=== PATIENT | male | born 1955 | race Caucasian/White ===

== ENCOUNTER 2017-11-08 09:01 | Emergency (ER) | payer OTHER ==
[2013-08-02 14:05] VITALS: BMI 32.1
[~2017-11-08 09:01] MED LIST: GAVISCON LIQUI355 ML PO; IMDUR30 MG PO; MIRALAX17 GM PO; NORCO 5/325 TAB1 TA1 PO
== END 2017-11-08 10:00 | disposition home or self-care (01) ==
LOC: D.ER 09:01
DX: J20.9 Acute bronchitis, unspecified (principal); I10 Essential (primary) hypertension

== ENCOUNTER 2017-12-21 13:28 | Emergency (ER) | payer OTHER ==
[2013-08-02 14:05] VITALS: BMI 32.1
[2017-12-21 13:53] LABS: EOSINOPHILS 4.6 % (0-7); HEMATOCRIT 41.1 % (42.0-54.0); HEMOGLOBIN 13.8 g/dL (13.5-17.5); IMMATURE GRANULOCYTES 0.5 % (0-5); LYMPHOCYTES 27.1 % (15-50); MCH 31.2 pg (26.0-34.0); MCHC 33.6 g/dL (31.0-37.0); MEAN PLATELET VOLUME 10.8 fL (7.4-10.4); MONOCYTES 10.3 % (2-11); NEUTROPHILS 56.5 % (40-80); PLATELET COUNT 332 10x3/uL (130-400); RBC 4.42 10x6/uL (4.20-6.10); RDW 12.7 % (11.5-14.5); WBC 9.4 10x3/uL (4.8-10.8)
[2017-12-21 14:08] LABS: ALBUMIN 3.9 g/dL (3.4-5.0); ALKALINE PHOSPHATASE 104 U/L (46-116); ALT (SGPT) 16 U/L (10-68); BILIRUBIN - TOTAL 0.34 mg/dL (0.2-1.3); CALC OSMOLALITY 284 mosm/kg (275-300); CALCIUM 8.9 mg/dL (8.5-10.1); CARBON DIOXIDE 25.4 mmol/L (21.0-32.0); CHLORIDE - SERUM 105 mmol/L (98-107); CREATININE - SERUM 1.1 mg/dL (0.6-1.3); GLUCOSE 110 mg/dL (74-106); POTASSIUM - SERUM 3.8 mmol/L (3.5-5.1); PROTEIN - SERUM 7.9 g/dL (6.4-8.2); SODIUM 142 mmol/L (136-145); UREA NITROGEN 14 mg/dL (7-18); eGFR NON AFRICAN AMERICAN 72 mL/min (90-120)
[2017-12-21 14:19] LABS: CHOL - HDL RATIO 3.1 ratio (2.3-4.9); CHOLESTEROL, TOTAL 182 mg/dL (0-200); CKMB 1.2 U/L (0.0-3.6); CREATINE KINASE 74 UL (21-232); HDL CHOLESTEROL 59 mg/dL (32-96); LDL CHOLESTEROL 90 mg/dL (0-100); LDL-HDL RATIO 1.5 ratio (1.5-3.5); TRIGLYCERIDE 168 mg/dL (30-200)
[2017-12-21 14:24] LABS: TROPONIN-I < 0.017 ng/mL (0.000-0.060)
== END 2017-12-21 18:11 | disposition other institution (70) ==
LOC: D.ER 13:28
PROVIDERS: Family Medicine
DX: R07.9 Chest pain, unspecified (principal); I10 Essential (primary) hypertension; Z95.0 Presence of cardiac pacemaker; I49.3 Ventricular premature depolarization; I45.10 Unspecified right bundle-branch block

== ENCOUNTER 2017-12-25 15:49 | Emergency (ER) | payer OTHER ==
[2013-08-02 14:05] VITALS: BMI 32.1
[2017-12-25 16:52] LABS: ALBUMIN 3.7 g/dL (3.4-5.0); ALKALINE PHOSPHATASE 83 U/L (46-116); ALT (SGPT) 14 U/L (10-68); BILIRUBIN - TOTAL 0.36 mg/dL (0.2-1.3); CALC OSMOLALITY 280 mosm/kg (275-300); CALCIUM 8.7 mg/dL (8.5-10.1); CARBON DIOXIDE 25.5 mmol/L (21.0-32.0); CHLORIDE - SERUM 105 mmol/L (98-107); CREATININE - SERUM 0.9 mg/dL (0.6-1.3); GLUCOSE 100 mg/dL (74-106); PROTEIN - SERUM 7.2 g/dL (6.4-8.2); SODIUM 141 mmol/L (136-145); UREA NITROGEN 13 mg/dL (7-18); eGFR NON AFRICAN AMERICAN > 90 mL/min (90-120)
== END 2017-12-25 17:42 | disposition home or self-care (01) ==
LOC: D.ER 15:49
PROVIDERS: Emergency Medicine
DX: I10 Essential (primary) hypertension (principal); Z95.0 Presence of cardiac pacemaker; I45.10 Unspecified right bundle-branch block

== ENCOUNTER 2018-02-02 19:13 | Observation (INO) | payer OTHER ==
[2018-02-02 19:51] LABS: BASOPHILS 0.3 % (0-2); EOSINOPHILS 2.2 % (0-7); HEMATOCRIT 38.1 % (42.0-54.0); HEMOGLOBIN 13.3 g/dL (13.5-17.5); IMMATURE GRANULOCYTES 0.2 % (0-5); LYMPHOCYTES 21.3 % (15-50); MCH 30.2 pg (26.0-34.0); MCHC 34.9 g/dL (31.0-37.0); MCV 86.6 fL (80.0-100.0); MEAN PLATELET VOLUME 10.9 fL (7.4-10.4); MONOCYTES 10.8 % (2-11); NEUTROPHILS 65.2 % (40-80); PLATELET COUNT 271 10x3/uL (130-400); RDW 12.1 % (11.5-14.5); WBC 10.1 10x3/uL (4.8-10.8)
[2018-02-02 20:19] LABS: ALBUMIN 3.6 g/dL (3.4-5.0); ALKALINE PHOSPHATASE 75 U/L (46-116); ALT (SGPT) 17 U/L (10-68); CALC OSMOLALITY 277 mosm/kg (275-300); CALCIUM 9.9 mg/dL (8.5-10.1); CARBON DIOXIDE 22.5 mmol/L (21.0-32.0); CHLORIDE - SERUM 101 mmol/L (98-107); CREATININE - SERUM 1.1 mg/dL (0.6-1.3); GLUCOSE 132 mg/dL (74-106); POTASSIUM - SERUM 4.2 mmol/L (3.5-5.1); PROTEIN - SERUM 7.7 g/dL (6.4-8.2); SODIUM 137 mmol/L (136-145); UREA NITROGEN 17 mg/dL (7-18); eGFR NON AFRICAN AMERICAN 72 mL/min (90-120)
[2018-02-02 20:31] LABS: CKMB 0.7 U/L (0.0-3.6); CREATINE KINASE 93 UL (21-232); PRO BNP 360 pg/mL (0-125); TROPONIN-I < 0.017 ng/mL (0.000-0.060)
[2018-02-03 06:21] LABS: APPEARANCE CLEAR (CLEAR); BILIRUBIN NEGATIVE (NEGATIVE); COLOR YELLOW (YELLOW); GLUCOSE NEGATIVE (NEGATIVE); KETONE SMALL mg/dL (NEGATIVE); NITRITE NEGATIVE (NEGATIVE); PROTEIN NEGATIVE (NEGATIVE); SPECIFIC GRAVITY 1.015 (1.005-1.020); UROBILINOGEN NORMAL (NORMAL)
[2018-02-03 08:56] VITALS: BMI 32.1
== END 2018-02-03 09:35 | disposition home or self-care (01) ==
LOC: D.ER 19:13 → D.EDHOLD 23:47 → OBSVTIME 23:47 → D.EDHOLD 02-03 09:35
PROVIDERS: Family Medicine
DX: R07.89 Other chest pain (principal); I25.10 Atherosclerotic heart disease of native coronary artery without angina pectoris; Z95.5 Presence of coronary angioplasty implant and graft; Z95.0 Presence of cardiac pacemaker; F10.10 Alcohol abuse, uncomplicated; I10 Essential (primary) hypertension; K29.70 Gastritis, unspecified, without bleeding; Y90.3 Blood alcohol level of 60-79 mg/100 ml

== ENCOUNTER 2018-09-17 07:10 | Emergency (ER) | payer OTHER ==
[~2018-09-17] VITALS: Ht 188 cm; Wt 113.6 kg
[2018-09-17 07:16] VITALS: Ht 188 cm; Wt 113.6 kg
[2018-09-17 07:36] LABS: BASOPHILS 0.5 % (0-2); EOSINOPHILS 1.1 % (0-7); HEMATOCRIT 42.1 % (42.0-54.0); HEMOGLOBIN 14.5 g/dL (13.5-17.5); IMMATURE GRANULOCYTES 0.3 % (0-5); LYMPHOCYTES 16.8 % (15-50); MCH 29.4 pg (26.0-34.0); MCHC 34.4 g/dL (31.0-37.0); MCV 85.2 fL (80.0-100.0); MEAN PLATELET VOLUME 10.4 fL (7.4-10.4); MONOCYTES 14.8 % (2-11); NEUTROPHILS 66.5 % (40-80); PLATELET COUNT 286 10x3/uL (130-400); RBC 4.94 10x6/uL (4.20-6.10); RDW 13.2 % (11.5-14.5); WBC 11.8 10x3/uL (4.8-10.8)
[2018-09-17 07:59] LABS: ALBUMIN 3.8 g/dL (3.4-5.0); ALKALINE PHOSPHATASE 97 U/L (46-116); ALT (SGPT) 12 U/L (10-68); BILIRUBIN - TOTAL 0.98 mg/dL (0.2-1.3); CALC OSMOLALITY 277 mosm/kg (275-300); CALCIUM 8.6 mg/dL (8.5-10.1); CARBON DIOXIDE 32.4 mmol/L (21.0-32.0); CHLORIDE - SERUM 91 mmol/L (98-107); CREATININE - SERUM 0.8 mg/dL (0.6-1.3); SODIUM 136 mmol/L (136-145); UREA NITROGEN 8 mg/dL (7-18); eGFR NON AFRICAN AMERICAN > 90 mL/min (90-120)
[2018-09-17 08:01] LABS: GLUCOSE 240 mg/dL (74-106)
[2018-09-17 08:11] LABS: CREATINE KINASE 480 UL (21-232); LIPASE 86 U/L (73-393); MAGNESIUM - SERUM 1.5 mg/dL (1.8-2.4); PRO BNP 877 pg/mL (0-125); TROPONIN-I 0.022 ng/mL (0.000-0.060)
[2018-09-17 08:12] LABS: CKMB 2.3 U/L (0.0-3.6)
[2018-09-17] MEDS ORDERED: ATIVAN1 MG PO (10:08)
[2018-09-17 11:06] VITALS: BP 129/86
== END 2018-09-17 11:08 | disposition home or self-care (01) ==
LOC: D.ER 07:10
PROVIDERS: Family Medicine
DX: R07.89 Other chest pain (principal); E87.6 Hypokalemia; G40.909 Epilepsy, unspecified, not intractable, without status epilepticus

== ENCOUNTER 2018-09-26 18:03 | Observation (INO) | payer OTHER ==
[~2018-09-26] VITALS: Ht 188 cm; Wt 118.0 kg
[~2018-09-26 18:03] MED LIST changes: +ATIVAN1 MG PO
[2018-09-26 18:32] LABS: BASOPHILS 0.1 % (0-2); EOSINOPHILS 1.9 % (0-7); HEMATOCRIT 42.1 % (42.0-54.0); HEMOGLOBIN 14.3 g/dL (13.5-17.5); IMMATURE GRANULOCYTES 0.4 % (0-5); LYMPHOCYTES 11.7 % (15-50); MCH 29.4 pg (26.0-34.0); MCV 86.6 fL (80.0-100.0); MEAN PLATELET VOLUME 10.5 fL (7.4-10.4); MONOCYTES 11.4 % (2-11); NEUTROPHILS 74.5 % (40-80); PLATELET COUNT 277 10x3/uL (130-400); RBC 4.86 10x6/uL (4.20-6.10); WBC 13.5 10x3/uL (4.8-10.8)
[2018-09-26 18:49] LABS: ALKALINE PHOSPHATASE 95 U/L (46-116); ALT (SGPT) 17 U/L (10-68); BILIRUBIN - TOTAL 0.85 mg/dL (0.2-1.3); CALC OSMOLALITY 275 mosm/kg (275-300); CALCIUM 9.3 mg/dL (8.5-10.1); CARBON DIOXIDE 22.9 mmol/L (21.0-32.0); CHLORIDE - SERUM 96 mmol/L (98-107); CREATININE - SERUM 0.8 mg/dL (0.6-1.3); GLUCOSE 230 mg/dL (74-106); PROTEIN - SERUM 8.4 g/dL (6.4-8.2); SODIUM 136 mmol/L (136-145); UREA NITROGEN 5 mg/dL (7-18); eGFR NON AFRICAN AMERICAN > 90 mL/min (90-120)
[2018-09-26 19:00] LABS: CKMB 1.7 U/L (0.0-3.6); CREATINE KINASE 224 UL (21-232); MAGNESIUM - SERUM 1.4 mg/dL (1.8-2.4); TROPONIN-I 0.018 ng/mL (0.000-0.060)
[2018-09-26 19:02] VITALS: BP 123/97
[2018-09-26 19:17] VITALS: BP 127/88
[2018-09-26 20:25] VITALS: BP 159/105
[2018-09-26 21:05] VITALS: BP 151/94
[2018-09-26 22:38] VITALS: BP 163/102; Ht 188 cm; Wt 118.0 kg
[2018-09-26] MEDS ORDERED: ATIVAN1 MG PO (22:53)
[2018-09-26] MEDS ORDERED: PRILOSEC PO (22:54)
[2018-09-26] MEDS ORDERED: PRINIVIL20 MG PO (22:55)
[2018-09-26] MEDS ORDERED: COREG12.5 MG PO (22:56)
[2018-09-26 23:03] LABS: CREATINE KINASE 240 UL (21-232); TROPONIN-I 0.026 ng/mL (0.000-0.060)
[2018-09-26] MEDS ORDERED: PRINIVIL10 MG PO (23:47)
[2018-09-27 00:57] VITALS: BP 129/78
[2018-09-27 03:49] LABS: APPEARANCE CLEAR (CLEAR); BILIRUBIN NEGATIVE (NEGATIVE); COLOR YELLOW (YELLOW); GLUCOSE 100 mg/dL (NEGATIVE); KETONE SMALL mg/dL (NEGATIVE); NITRITE NEGATIVE (NEGATIVE); PROTEIN NEGATIVE (NEGATIVE); SPECIFIC GRAVITY 1.005 (1.005-1.020); UROBILINOGEN NORMAL (NORMAL)
[2018-09-27 03:51] LABS: BASOPHILS 0.2 % (0-2); EOSINOPHILS 2.1 % (0-7); HEMATOCRIT 39.1 % (42.0-54.0); HEMOGLOBIN 13.4 g/dL (13.5-17.5); IMMATURE GRANULOCYTES 0.3 % (0-5); MCH 29.6 pg (26.0-34.0); MCHC 34.3 g/dL (31.0-37.0); MCV 86.3 fL (80.0-100.0); MEAN PLATELET VOLUME 10.6 fL (7.4-10.4); MONOCYTES 16.1 % (2-11); NEUTROPHILS 61.3 % (40-80); PLATELET COUNT 296 10x3/uL (130-400); RBC 4.53 10x6/uL (4.20-6.10); RDW 13.1 % (11.5-14.5)
[2018-09-27 04:03] LABS: WBC 10.1 10x3/uL (4.8-10.8)
[2018-09-27 04:31] LABS: ALBUMIN 3.7 g/dL (3.4-5.0); ALKALINE PHOSPHATASE 88 U/L (46-116); ALT (SGPT) 15 U/L (10-68); BILIRUBIN - TOTAL 0.98 mg/dL (0.2-1.3); CALC OSMOLALITY 281 mosm/kg (275-300); CALCIUM 8.9 mg/dL (8.5-10.1); CARBON DIOXIDE 24.7 mmol/L (21.0-32.0); CHLORIDE - SERUM 98 mmol/L (98-107); CREATINE KINASE 255 UL (21-232); CREATININE - SERUM 0.8 mg/dL (0.6-1.3); GLUCOSE 198 mg/dL (74-106); PROTEIN - SERUM 7.7 g/dL (6.4-8.2); SODIUM 139 mmol/L (136-145); TROPONIN-I 0.021 ng/mL (0.000-0.060); UREA NITROGEN 6 mg/dL (7-18); eGFR NON AFRICAN AMERICAN > 90 mL/min (90-120)
[2018-09-27 04:32] LABS: POTASSIUM - SERUM 3.5 mmol/L (3.5-5.1)
--- NOTE | 2018-09-28 10:38 | MORECARE ---
CASE MANAGEMENT DISCHARGE SUMMARY PATIENT: JOSE PRIETO UNIT: [id number] ADM DATE: 09/26/18 AGE: 63 : 53 SEX: M ROOM/BED: D.2120 AUTHOR: ANA ROSA DALAL PHYSICIAN: REFERRING PHYSICIAN: FELI SEPINOZA MD DATE OF SERVICE: 09/28/18 Discharge Plan Patient Name: JOSE [facility] [facility] 1955 Planned Disposition: Home Anticipated Discharge Date: 09/27/18 Discharge Date: 09/27/2018 Expected LOS: 1 Initial Reviewer: [email or web address] Initial Review Date: 09/28/2018 Generated: 09/28/18 11:38 am Patient Name: JOSE PRIETO Page [id number] at 1038 All edits/amendments must be made on the electronic document DICTATION DATE: 09/28/18 1038 ROUTER MACHINE OPERATOR: GARRETT 09/28/18 1038 RPT#: [id number] DC DATE:09/27/18 STATUS: DIS IN [facility] [address] [place] [address] END OF REPORT
== END 2018-09-27 04:56 | disposition left against medical advice (07) ==
LOC: D.ER 18:03 → D.M2 21:17 → OBSVTIME 21:18 → D.M2 09-27 04:56
PROVIDERS: Emergency Medicine; Family Medicine; ADMIT Internal Medicine Interventional Cardiology
DX: R07.9 Chest pain, unspecified (principal); I10 Essential (primary) hypertension; Z95.0 Presence of cardiac pacemaker; F17.220 Nicotine dependence, chewing tobacco, uncomplicated

== ENCOUNTER 2018-12-16 22:09 | Emergency (ER) | payer OTHER ==
[~2018-12-16] VITALS: Ht 188 cm; Wt 113.6 kg
[~2018-12-16 22:09] MED LIST changes: +COREG12.5 MG PO; +PRILOSEC PO; +PRINIVIL10 MG PO; +PRINIVIL20 MG PO
[2018-12-16 22:14] VITALS: Ht 188 cm; Wt 113.6 kg
[2018-12-16] MEDS ORDERED: CATAPRES0.2 MG PO (22:31)
[2018-12-16 23:22] LABS: APPEARANCE CLEAR (CLEAR); BILIRUBIN NEGATIVE (NEGATIVE); COLOR YELLOW (YELLOW); GLUCOSE 100 mg/dL (NEGATIVE); KETONE SMALL mg/dL (NEGATIVE); NITRITE NEGATIVE (NEGATIVE); PROTEIN NEGATIVE (NEGATIVE); UROBILINOGEN NORMAL (NORMAL)
[2018-12-16 23:27] LABS: UDS - AMPHET NEGATIVE QUAL (NEGATIVE); UDS - BARB NEGATIVE QUAL (NEGATIVE); UDS - BENZO NEGATIVE QUAL (NEGATIVE); UDS - COCAINE NEGATIVE QUAL (NEGATIVE); UDS - OPIATE NEGATIVE QUAL (NEGATIVE); UDS - PCP NEGATIVE QUAL (NEGATIVE); UDS - THC NEGATIVE QUAL (NEGATIVE)
[2018-12-17 00:10] VITALS: BP 141/89
== END 2018-12-17 00:10 | disposition home or self-care (01) ==
LOC: D.ER 22:09
PROVIDERS: Family Medicine
DX: I10 Essential (primary) hypertension (principal)

== ENCOUNTER 2019-08-29 06:12 | Emergency (ER) | payer OTHER ==
[~2019-08-29] VITALS: Ht 188 cm; Wt 118.2 kg
[~2019-08-29 06:12] MED LIST changes: +CATAPRES0.2 MG PO
[2019-08-29 06:13] VITALS: Ht 188 cm; Wt 118.2 kg
[2019-08-29] MEDS ORDERED: AMOXICILLIN (06:16)
[2019-08-29 06:38] LABS: BASOPHILS 0.3 % (0-2); EOSINOPHILS 0.8 % (0-7); HEMATOCRIT 41.1 % (42.0-54.0); IMMATURE GRANULOCYTES 0.8 % (0-5); MCH 29.8 pg (26.0-34.0); MCHC 34.1 g/dL (31.0-37.0); MCV 87.4 fL (80.0-100.0); MEAN PLATELET VOLUME 9.9 fL (7.4-10.4); MONOCYTES 16.9 % (2-11); NEUTROPHILS 67.2 % (40-80); RDW 14.5 % (11.5-14.5); WBC 5.9 10x3/uL (4.8-10.8)
[2019-08-29 06:41] LABS: PLATELET COUNT 204 10x3/uL (130-400)
[2019-08-29 06:43] LABS: CALC OSMOLALITY 270 mosm/kg (275-300); CALCIUM 9.1 mg/dL (8.5-10.1); CHLORIDE - SERUM 94 mmol/L (98-107); CREATININE - SERUM 0.8 mg/dL (0.6-1.3); GLUCOSE 216 mg/dL (74-106); POTASSIUM - SERUM 3.2 mmol/L (3.5-5.1); SODIUM 133 mmol/L (136-145); UREA NITROGEN 7 mg/dL (7-18); eGFR NON AFRICAN AMERICAN > 90 mL/min (90-120)
[2019-08-29 07:04] LABS: ALBUMIN 3.3 g/dL (3.4-5.0); ALKALINE PHOSPHATASE 100 U/L (46-116); BILIRUBIN - TOTAL 0.42 mg/dL (0.2-1.3); CREATINE KINASE 179 UL (21-232); MAGNESIUM - SERUM 1.9 mg/dL (1.8-2.4); PRO BNP 95 pg/mL (0-125); PROTEIN - SERUM 8.2 g/dL (6.4-8.2)
[2019-08-29 07:05] LABS: ALT (SGPT) 2 U/L (10-68); TROPONIN-I < 0.017 ng/mL (0.000-0.060)
[2019-08-29 07:08] LABS: APTT 27.9 SECONDS (22.8-39.4); INR 0.99 (0.85-1.17); PROTIME 12.6 SECONDS (11.6-15.0)
[2019-08-29] MEDS ORDERED: XOPENEX HFA15 GM INH (08:38)
[2019-08-29] MEDS ORDERED: ZITHROMAX TRI-500 MG PO (08:38)
[2019-08-29 08:58] VITALS: BP 137/95
== END 2019-08-29 08:59 | disposition home or self-care (01) ==
LOC: D.ER 06:12
PROVIDERS: Emergency Medicine
DX: R06.00 Dyspnea, unspecified (principal); J40 Bronchitis, not specified as acute or chronic; E87.6 Hypokalemia; I10 Essential (primary) hypertension; E11.9 Type 2 diabetes mellitus without complications; Z95.0 Presence of cardiac pacemaker

== ENCOUNTER 2019-11-29 11:38 | Emergency (ER) | payer OTHER ==
[~2019-11-29] VITALS: Ht 188 cm; Wt 104.5 kg
[~2019-11-29 11:38] MED LIST changes: +AMOXICILLIN; +XOPENEX HFA15 GM INH; +ZITHROMAX TRI-500 MG PO
[2019-11-29 11:46] VITALS: Ht 188 cm; Wt 104.5 kg
[2019-11-29 12:19] LABS: BASOPHILS 0.3 % (0-2); EOSINOPHILS 0.4 % (0-7); HEMATOCRIT 43.8 % (42.0-54.0); IMMATURE GRANULOCYTES 0.5 % (0-5); LYMPHOCYTES 17.2 % (15-50); MCH 30.8 pg (26.0-34.0); MCHC 34.2 g/dL (31.0-37.0); MCV 89.9 fL (80.0-100.0); MEAN PLATELET VOLUME 10.6 fL (7.4-10.4); MONOCYTES 7.6 % (2-11); RBC 4.87 10x6/uL (4.20-6.10); RDW 13.4 % (11.5-14.5); WBC 11.9 10x3/uL (4.8-10.8)
[2019-11-29 12:24] LABS: CALC OSMOLALITY 275 mosm/kg (275-300); CALCIUM 9.4 mg/dL (8.5-10.1); CHLORIDE - SERUM 96 mmol/L (98-107); CREATININE - SERUM 1.3 mg/dL (0.6-1.3); POTASSIUM - SERUM 3.4 mmol/L (3.5-5.1); SODIUM 136 mmol/L (136-145); UREA NITROGEN 13 mg/dL (7-18); eGFR NON AFRICAN AMERICAN 59 mL/min (90-120)
[2019-11-29 12:25] LABS: GLUCOSE 168 mg/dL (74-106)
[2019-11-29 12:30] LABS: PLATELET COUNT 379 10x3/uL (130-400)
[2019-11-29 12:33] LABS: ALBUMIN 4.1 g/dL (3.4-5.0); ALKALINE PHOSPHATASE 78 U/L (30-120); ALT (SGPT) 19 U/L (10-68); AMYLASE - SERUM 45 U/L (25-115); LIPASE 130 U/L (73-393); PROTEIN - SERUM 8.6 g/dL (6.4-8.2)
[2019-11-29 12:37] LABS: TROPONIN-I < 0.017 ng/mL (0.000-0.060)
[2019-11-29 12:51] LABS: APTT 30.9 SECONDS (22.8-39.4); INR 1.09 (0.85-1.17); PROTIME 14.1 SECONDS (11.6-15.0)
[2019-11-29 13:00] VITALS: BP 150/105
[2019-11-29 13:04] LABS: BILIRUBIN NEGATIVE (NEGATIVE); GLUCOSE NEGATIVE (NEGATIVE); KETONE MODERATE mg/dL (NEGATIVE); NITRITE NEGATIVE (NEGATIVE); SPECIFIC GRAVITY 1.005 (1.005-1.020); WHITE CELLS - URINE RARE /hpf (NEGATIVE)
[2019-11-29 13:05] LABS: BACTERIA FEW /hpf (NEGATIVE); EPITHELIAL CELLS OCC /hpf (0-5); RED CELLS - URINE NONE SEEN /hpf (0-5)
[2019-11-29 13:07] LABS: CKMB 0.7 U/L (0.0-3.6); CREATINE KINASE 70 UL (21-232)
[2019-11-29] MEDS ORDERED: PROTONIX40 MG PO (14:06)
== END 2019-11-29 14:47 | disposition home or self-care (01) ==
LOC: D.ER 11:38
PROVIDERS: Family Medicine
DX: F10.20 Alcohol dependence, uncomplicated (principal); F41.9 Anxiety disorder, unspecified; K29.70 Gastritis, unspecified, without bleeding; E11.9 Type 2 diabetes mellitus without complications; I10 Essential (primary) hypertension; Z95.0 Presence of cardiac pacemaker